=== PATIENT | male | born 1945 | race Two or more races ===

== ENCOUNTER 2023-05-17 11:59 | Emergency (ER) | payer OTHER ==
[~2023-05-17] VITALS: Ht 165.1 cm; Wt 86.2 kg
[~2023-05-17 11:59] MED LIST: CEFADROXIL500 MG PO; KETO10TA2 PO
[2023-05-17 14:57] LABS: HEMATOCRIT 39.7 % (39.0-48.0); HEMOGLOBIN 13.5 g/dL (13-16.00); MEAN CELL VOLUME 88.2 fL (80.0-100.00); MEAN CORPUSCULAR HEMOGLOBIN 29.9 pg (27.00-32.0); MEAN CORPUSCULAR HGB CONC 33.9 g/dl (32.0-36.0); PLATELET COUNT 211 K/uL (150-450); RED BLOOD COUNT 4.51 M/uL (4.00-6.00); RED CELL DISTRIBUTION WIDTH 13.5 % (11.5-14.5)
[2023-05-17 14:58] LABS: PH,URINE 6.5 (5.0-8.0); URINE APPEARANCE Clear; URINE BILIRRUBIN Negative (NEGATIVE); URINE BLOOD Negative; URINE COLOR Yellow; URINE GLUCOSE Negative (NEGATIVE); URINE LEUKOCYTE Small; URINE NITRATE Negative; URINE PROTEIN Negative (NEGATIVE); URINE UROBILINOGEN 0.2 E.U./dl
[2023-05-17 14:59] LABS: URINE BACTERIA 521.6 uL (0.0-1933); URINE EPITHELIAL CELLS 14.5 uL (0.0-38.8); URINE RBC 13.5 uL (0.0-20.8); URINE WBC 49.7 uL (0.0-23.2)
[2023-05-17 15:19] LABS: CALCIUM 9.3 mg/dL (8.5-10.1); CREATININE SERUM 1.34 mg/dL (0.70-1.30); GFR 51.96; POTASSIUM 3.91 mEq/L (3.5-5.1)
== END 2023-05-17 16:54 | disposition home or self-care (01) ==
LOC: ER 11:59
PROVIDERS: General Practice
DX: J44.9 Chronic obstructive pulmonary disease, unspecified (principal); Z20.822 Contact with and (suspected) exposure to COVID-19